=== PATIENT | female | born 1985 | race Caucasian/White ===

== ENCOUNTER 2017-07-18 13:31 | Outpatient (RCR) ==
--- NOTE | 2017-07-18 16:03 | RS.OPPTEV2 ---
Date of Note: 07/18/17 Visit #: 1 Date of Evaluation: 07/18/17 Payer Source: Medicaid Surgery Performed?: No Treatment Diagnosis: R knee pain History of Condition/Mechanism of Injury:: pt states she has been having pain for approx 1 month. No definite injury noted. 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 Prior Level of Function.....Patient was independent with: ADL's, Self Care, Caregiving, Ambulation/Mobility, Community Integration/Access Functional Limitations: Standing, Squatting, Ambulation, Community Access/ Integration Current Subjective/complaints:: pt states she has the most pain after sitting in chair and then standing. pt reports hearing "clicking" in the knee. Treatment Side (optional): Right *Precautions: n/a Medical History Medical History Comments:: DDD cervical spine Surgical History: (x3) Smoking Status: Former smoker Diagnostic Testing/Imaging:: xrays showed no abnormalities Hx Home Medications: none noted Patient's Goals: decrease R knee pain Pain Assessment - Pain Description Pain Location: R knee Pain Description: Aching Current Pain Intensity: 4/10 Functional Outcome Measure LE Functional Scale: 49 (39%) - G Codes & Severity Modifier G Codes & Modifier: n/a Source of G Code score: n/a Observation - Observation Inspection: pt presents with BLE feet pronated, R knee valgus deformity, Posture: Forward Head, Rounded Shoulders, Increased Thoracic Kyphosis, Decreased Lumbar Lordosis Handedness: Right Gait - Gait Pattern General Gait Pattern Observation: Antalgic Gait, Short Stance Time (R) General Range of Motion: WFL's Muscle Strength: BUE 5/5. BLE 5/5 except R knee Knee ROM: Left WFL's Knee Muscle Strength: Left WFL's - Right Knee ROM Right Knee Extension: -5 Right Knee Flexion: 103 Knee ROM Limitations: Soft Tissue Tightness, Pain - Right Knee Strength Right Knee Extension: 4+ Good + Right Knee Flexion: 4+ Good + - Special Tests Knee Anterior Drawer Test: Negative Right Knee Posterior Drawer Test: Negative Right Knee Valgus Stress Test: Negative Right Knee Varus Stress Test: Negative Right Knee Riana Test: Negative Right Palpation Palpation Findings: Tenderness (patellar tendon, medial join line, crepitis noted in patella with patellar tracking) Sensation - Sensation Right Upper Extremity: Intact/Normal Left Upper Extremity: Intact/Normal Right Lower Extremity: Intact/Normal Left Lower Extremity: Intact/Normal Balance - Sitting Balance Static Sitting Balance: Normal Dynamic Sitting Balance: Normal - Standing Balance Static Standing Balance: Normal Dynamic Standing Balance: Normal - Heat/Cryotherapy Treatment: Cryotherapy (R knee) Interventions - Exercise/Activities/Manual Therapy Exercises/Activities: pt instructed on QS, hip abd/add, sidelying hip abd, LAQ Manual Therapy: n/a HOME EXERCISE PROGRAM: pt given written HEP including : hamstring stretch, QS, hip abd/add, sidelying hip abd/add, LAQ - Charges Timed Code Treatment Minutes: 42 Total Treatment Time: 60 Procedures billed for this date of service:: evcathy terrazas, cp EVALUATION COMPLEXITY LEVEL EVALUATION COMPLEXITY LEVEL: HISTORY: Low (R knee pain), EXAM OF BODY SYSTEMS: Medium (pain, ms tigntness, ), CLINICAL PRESENTATION: Low, CLINICAL DECISION MAKING: Low Assessment Assessment: pt presents with pain in R knee with crepitis noted with ROM. pt with questionable hypermobile patella medially. R hamstrings mod tightness. Patient Education: Home Exercise Program, Education of Plan of Care Rehab Potential: Good Short Term Goals Goal #1: pt rate pain R knee <4/10 with activity Goal to be met by: 08/01/17 Goal #2: pt with decreased hamstring tightness R equal to L Goal to be met by: 08/01/17 Goal #3: pt independent with initial HEP Goal to be met by: 08/01/17 Goal #4: pt amb in dept with decreased antalgic gait pattern. Goal to be met by: 08/01/17 Prison Goals Goal #1: pt rate pain <2 with activity R knee Goal to be met by: 08/15/17 Goal #2: pt report decreased pain with standing Goal to be met by: 08/15/17 Goal #3: ROM R knee flex 110, ext 0 Goal to be met by: 08/15/17 Goal #4: pt amb with no antalgic gait pattern, report decreased pain with steps Goal to be met by: 08/15/17 Plan - Treatment to be Provided Procedures: Therapeutic Exercises, Therapeutic Activity, Gait Training, Neuromuscular Rehab, Manual Therapy, Patient Education Modalities: Electrical Stimulation, Ultrasound/Phonophoresis, Class IV Laser, Cryotherapy, Hot Packs - Treatment Plan Frequency: 2 X week Duration: 6 weeks ORDER # VISITS AND/OR THROUGH DATE: 08/15/17 - Treatment Code (1) Right knee pain Code(s): M25.561 - PAIN IN RIGHT KNEE Qualifiers: Chronicity: chronic Qualified Code(s): M25.561 - Pain in right knee; G89.29 - Other chronic pain (2) Hamstring tightness of right lower extremity Code(s): M62.9 - DISORDER OF MUSCLE, UNSPECIFIED
== END 2017-07-18 23:59 | disposition short-term general hospital (02) ==
PROVIDERS: ATTEND Physician Assistant
DX: M25.561 Pain in right knee (principal)